=== PATIENT | female | born 1990 | race Caucasian/White ===

== ENCOUNTER → 2019-04-27 | Outpatient (CLI) | payer SELFPAY ==
[~2019-04-27] MED LIST: HYDACE5 PO; IBU; Verotin-Gr Cap1 EACH PO
[2019-04-28 06:37] LABS: Candida species (DNA Probe) Negative (NEGATIVE); G. vaginalis (DNA Probe) Negative (NEGATIVE); T. vaginalis (DNA Probe) Negative (NEGATIVE)
== END | disposition home or self-care (01) ==
LOC: LAB EV 13:04 → LAB SHORT 13:04
PROVIDERS: Physician Assistant
DX: N76.0 Acute vaginitis (principal); R82.79 Other abnormal findings on microbiological examination of urine
CPT/HCPCS: 87086; 87480; 87510; 87660

== ENCOUNTER 2021-08-08 05:05 | Inpatient (IN) | payer OTHER ==
[~2021-08-08] VITALS: Ht 170.2 cm; Wt 104.5 kg
[2021-08-08] MEDS ORDERED: ACYC400 PO (05:57)
[2021-08-08 06:06] LABS: BASOPHILS ABSOLUTE AUTO 0.03 K/mm3 (0.00-0.23); BASOPHILS PERCENT AUTO 0 % (0-2); EOSINOPHILS ABSOLUTE AUTO 0.01 K/mm3 (0.00-0.68); EOSINOPHILS PERCENT AUTO 0 % (0-6); Hematocrit 35.6 % (33.0-51.0); Hemoglobin 11.8 g/dL (11.5-16.0); IMMATURE GRAN ABSOLUTE AUTO 0.12 K/mm3 (0.00-0.10); IMMATURE GRAN PERCENT AUTO 1 % (0-1); LYMPHOCYTES PERCENT AUTO 23 % (21-46); MONOCYTES ABSOLUTE AUTO 0.91 K/mm3 (0.16-1.47); MONOCYTES PERCENT AUTO 10 % (4-13); Mean Corpuscular HGB 30.4 pg (26.0-34.0); Mean Corpuscular HGB Conc 33.1 g/dL (31.5-36.5); Mean Corpuscular Volume 92 fL (80-100); Mean Platelet Volume 10.2 fL (9.1-12.4); NEUTROPHILS ABSOLUTE AUTO 5.95 K/mm3 (1.96-9.15); NEUTROPHILS PERCENT AUTO 65 % (41-73); Platelet Count 264 K/mm3 (150-400); RDW Coefficient Variation 14.5 % (11.7-14.2); RDW Standard Deviation 48.6 fL (35.1-46.3); Red Blood Cell Count 3.88 M/mm3 (3.80-5.20); White Blood Cell Count 9.12 K/mm3 (4.00-11.30)
[2021-08-08] MEDS ORDERED: VALA500 PO (06:17)
--- NOTE | 2021-08-08 22:01 | NUR ---
SHOWER, VOID #1 AND LINENS CHANGED. TOLERATED WELL. RHOGAM AND TORODOL GIVEN. PT REQUESTING TO SLEEP THROUGH THE NIGHT WITHOUT INTERUPTION. HER MOTHER IS AT BEDSIDE FOR ASSISTANCE WHEN NEEDED. PT WILL CALL FOR VITALS WHEN SHE WAKES UP. NO QUESTIONS OR CONCERNS. REPORT WILL BE GIVEN TO KIKI COVARRUBIAS.
[2021-08-09 06:01] LABS: Hematocrit 29.6 % (33.0-51.0); Hemoglobin 9.7 g/dL (11.5-16.0); Mean Corpuscular HGB 30.8 pg (26.0-34.0); Mean Corpuscular HGB Conc 32.8 g/dL (31.5-36.5); Mean Corpuscular Volume 94 fL (80-100); Mean Platelet Volume 10.3 fL (9.1-12.4); Platelet Count 207 K/mm3 (150-400); RDW Coefficient Variation 14.4 % (11.7-14.2); RDW Standard Deviation 49.5 fL (35.1-46.3); Red Blood Cell Count 3.15 M/mm3 (3.80-5.20); White Blood Cell Count 12.04 K/mm3 (4.00-11.30)
--- NOTE | 2021-08-09 09:29 | NUR ---
D/C INSTRUCTIONS DISCUSSED AND SIGNED. NO QUESTIONS OR CONCERNS AT THIS TIME.
--- NOTE | 2021-08-09 10:47 | NUR ---
PT AMBULATING IN HALLS TO SEE BIOLOGICAL PARENTS AND NB. VIVIAN WELL. D/C INSTRUCTIONS DISCUSSED AND SIGNED. NO QUESTIONS OR CONCERNS. REQUESTS PAIN RX PRIOR TO D/C. PT WILL CALL WHEN BACK TO ROOM.
== END 2021-08-09 11:15 | disposition home or self-care (01) | DRG 806 ==
LOC: OBS 05:05 → BC 05:22
PROVIDERS: ADMIT Advanced Practice Midwife
PROC: 10E0XZZ Delivery of Products of Conception, External Approach (ICD-10-PCS; principal; 2021-08-08)
PROC: 0HQ9XZZ Repair Perineum Skin, External Approach (ICD-10-PCS; 2021-08-08)
PROC: 3E0234Z Introduction of Serum, Toxoid and Vaccine into Muscle, Percutaneous Approach (ICD-10-PCS; 2021-08-08)
PROC: 3E0R3BZ Introduction of Anesthetic Agent into Spinal Canal, Percutaneous Approach (ICD-10-PCS; 2021-08-08)
PROC: 00HU33Z Insertion of Infusion Device into Spinal Canal, Percutaneous Approach (ICD-10-PCS; 2021-08-08)
DX: O99.892 Other specified diseases and conditions complicating childbirth (principal); O72.1 Other immediate postpartum hemorrhage; Z37.0 Single live birth; O98.32 Other infections with a predominantly sexual mode of transmission complicating childbirth; Z33.3 Pregnant state, gestational carrier; Z3A.39 39 weeks gestation of pregnancy; A60.00 Herpesviral infection of urogenital system, unspecified; O70.0 First degree perineal laceration during delivery; O26.893 Other specified pregnancy related conditions, third trimester; Z67.11 Type A blood, Rh negative; Z23 Encounter for immunization
CPT/HCPCS: 36415; 51702; 85025; 85027; 85460; 86850; 86900; 86901; 96372; A9270; J1200; J1885; J2001; J2210; J2405; J2590; J2791; J3010; J7120

== ENCOUNTER → 2021-10-12 | Outpatient (CLI) | payer OTHER ==
[~2021-10-12] MED LIST changes: +ACYC400 PO; +VALA500 PO
== END | disposition home or self-care (01) ==
LOC: LAB 14:44 → LAB SHORT 14:44
DX: D48.5 Neoplasm of uncertain behavior of skin (principal); D22.4 Melanocytic nevi of scalp and neck; D22.5 Melanocytic nevi of trunk
CPT/HCPCS: 88305

== ENCOUNTER → 2021-10-25 | Outpatient (CLI) | payer OTHER | END | disposition home or self-care (01) | LOC: LAB SHORT 10:59 | DX: D48.5 Neoplasm of uncertain behavior of skin (principal) | CPT/HCPCS: 88305 ==

== ENCOUNTER 2023-08-20 06:07 | Day surgery (SDC) | payer OTHER ==
[~2023-08-20] VITALS: Ht 170.2 cm; Wt 73.1 kg
[2023-08-20] VITALS (10 sets, daily range): BP systolic 100–116; BP diastolic 62–81
[~2023-08-20 06:07] MED LIST changes: +BIRTH CONTROL; +MULVITA PO
--- NOTE | 2023-08-20 07:05 | NUR ---
AFTER FIRST ATTEMPT PT STATED THAT SHE FELT DIZZY AND HAD A SYNCOPAL EPISODE SHORTLY AFTER THAT LASTED LESS THAN 20 SECONDS. 2 RNS AT BEDSIDE. COLD COMPRESSES PROVIDED AND PT RECLINED INTO SUPINE POSITION. PT V/S MONITORED AND STABLE. PT NOW DENIES ANY DIZZINESS OR OTHER DISCOMFORTS. PT GIVEN A FEW MINUTES REST BEFORE SECOND ATTEMPT. SECOND ATTEMPT TOLERATED WELL. MOM AT BEDSIDE.
--- NOTE | 2023-08-20 07:32 | NUR ---
Ambulatory in Day Surgery. History, Chart, Medications and Allergies reviewed before start of procedure. Lungs clear T/O to Auscultation. Patient confirms NPO status and agrees with scheduled surgery. Pre-Op teaching done. Pt verbalizes understanding. Patient States Post-Procedure ride home has been arranged. PT BELONGINGS PLACED UNDERNEATH GURNEY FOR SAFEKEEPING. PT GLASSES PLACED UNDERNEATH GURNEY FOR SAFEKEEPING. PT JEWELRY TO RIGHT EAR HELIX TAPED.
--- NOTE | 2023-08-20 09:36 | NUR ---
Patient up to Ambulate independently. Gait steady. Discharge instructions reviewed with patient. Patient verbalizes understanding. Copy given to patient to take home, WELL MOM. Patient States Post-Procedure ride home has been arranged. Discharged via wheelchair to private car for ride home. MAYE BOTTLE,MADONNA PANTIES,GAUZE GIVEN TO PT.
== END 2023-08-20 09:36 | disposition home or self-care (01) ==
LOC: ORSCMMR 06:07 → ORD 07:30 → ORSCMMR 09:36
PROVIDERS: Surgery
PROC: 06BY0ZC Excision of Hemorrhoidal Plexus, Open Approach (ICD-10-PCS; principal; 2023-08-20 07:30)
DX: K64.4 Residual hemorrhoidal skin tags (principal)
CPT/HCPCS: 88304; A9270; J1100; J2250; J2405; J2704; J3010; J7120

== ENCOUNTER → 2024-07-31 | Outpatient (CLI) | payer OTHER ==
[2024-07-31 17:13] LABS: Candida glabrata-krusei, PCR NOT DETECTED (NOT DETECT)
[2024-07-31 17:34] LABS: Bacterial Vaginosis PCR Positive (NEGATIVE); Candida Group, PCR DETECTED (NOT DETECT)
== END ==
LOC: LAB SHORT 14:14 → LAB 14:14
PROVIDERS: Family Medicine
DX: N89.8 Other specified noninflammatory disorders of vagina (principal)
CPT/HCPCS: 87481; 87661; 87801

== ENCOUNTER → 2025-05-09 | Outpatient (CLI) | payer OTHER ==
[2025-05-09 13:07] LABS: Bacterial Vaginosis PCR Negative (NEGATIVE); Candida glabrata-krusei, PCR NOT DETECTED (NOT DETECT)
[2025-05-09 20:01] LABS: Candida Group, PCR DETECTED (NOT DETECT)
== END | disposition home or self-care (01) ==
LOC: LAB 11:09 → LAB SHORT 11:09
DX: N89.8 Other specified noninflammatory disorders of vagina (principal); R82.81 Pyuria
CPT/HCPCS: 81515; 87086